=== PATIENT | male | born 1980 | race African-American/Black ===

== ENCOUNTER 2023-03-24 08:06 | Emergency (ER) | payer SELFPAY ==
[2023-03-24 08:55] LABS: #Basophils 0.1 10x3/uL (0.0-0.2); #Eosinphils 0.2 10x3/uL (0.0-0.5); #Monocytes 0.6 10x3/uL (0.0-1.1); #Neutrophils 3.9 10x3/uL (1.5-8.4); %Basophils 1.2 % (0.0-2.0); %Lymphocytes 29.8 % (18.0-47.0); %Monocytes 8.2 % (0.0-10.0); %Neutrophils 57.5 % (40.0-75.0); Hemoglobin 13.4 g/dL (13.5-17.5); Mean Corpuscular HGB CONC 33.2 g/dL (32.0-36.0); Mean Corpuscular Hemoglobin 28.8 pg (27.0-33.0); Mean Corpuscular Volume 86.7 fl (81.2-95.1); Mean Platelet Volume 10.6 fl (7.4-10.4); Platelet Count 233 10x3/uL (150-450); RBC Distribution Width 12.2 % (11.5-14.5); Red Blood Cell (RBC) Count 4.66 10x6/uL (4.32-5.72); White Blood Cell (WBC) Count 6.7 10x3/uL (3.5-10.5)
[2023-03-24 09:04] LABS: ALT (SGPT) 43 U/L (8-55); AST (SGOT) 27 U/L (5-34); Albumin 4.7 g/dL (3.5-5.0); Alkaline Phosphatase 70 U/L (40-110); Anion Gap 15 mmol/L (10-20); BUN (Urea Nitrogen) 15 mg/dL (8.9-20.6); Bilirubin, Total 0.8 mg/dL (0.2-1.2); CK (CPK) 537 U/L (30-200); Calc. Creatinine Clearance 0 mL/min (70-130); Calcium 9.3 mg/dL (7.8-10.44); Carbon Dioxide 20 mmol/L (22-29); Chloride 107 mmol/L (98-107); Estimated GFR 70; Globulin 2.8 g/dL (2.4-3.5); Glucose 148 mg/dL (70-105); Potassium 3.6 mmol/L (3.5-5.1); Protein, Total 7.5 g/dL (6.0-8.3); Sodium 138 mmol/L (136-145)
[2023-03-24 09:07] LABS: Actual Bicarbonate (HCO3v) 22.5 mEq/L (22-28); Base Excess -3.9 mEq/L (-2 - +2); Calcium, Ionized (venous) 1.15 mmol/L (1.16-1.32); Chloride (VBG) 106 mmol/L (98-106); Hematocrit-VBG 41 % (42.0-52.0); Potassium (VBG) 3.74 mmol/L (3.70-5.30); Puncture Site Other Site; Sodium 139.6 mmol/L (133-146); pH (venous) 7.305 (7.32-7.43)
[2023-03-24 10:46] LABS: Bilirubin Neg (Negative); Blood, Urine Negative (Negative); Clarity Clear (Clear); Glucose, Urine (Dipstick) Normal (Negative); Ketone, Urine Negative (Negative); Leukocyte Negative (Negative); Nitrite Negative (Negative); Protein, Urine (Dipstick) 15 mg/dl (Neg-Trace); Specific Gravity, Urine 1.025 (1.005-1.030); Urobilinogen Normal mg/dL (Less than 2)
[2023-03-24 11:17] LABS: RBC/HPF 0-3 HPF (0-3)
[2023-03-24 11:18] LABS: Bacteria/HPF 1+ HPF (None Seen); CAUTI Indications for Culture Dysuria,urgency,freq; Squamous Epithelial 0-3 HPF (0-3); Urine Culture Reflex No No; WBC/HPF 0-3 HPF (0-3)
== END 2023-03-24 11:22 | disposition home or self-care (01) ==
LOC: CSHERS 08:06
DX: E86.0 Dehydration (principal); I10 Essential (primary) hypertension; E11.9 Type 2 diabetes mellitus without complications
CPT/HCPCS: 36415; 71045; 80053; 81001; 82550; 82805; 84484; 85025; 93005; 96360; 96361

== ENCOUNTER 2023-03-26 08:41 | Emergency (ER) | payer SELFPAY ==
[2023-03-26] MEDS ORDERED: Metoclopramide HCl 10 MG TAB ONE (10:24)
== END 2023-03-26 10:40 | disposition home or self-care (01) ==
LOC: CSHERS 08:41
DX: R51.9 Headache, unspecified (principal); I10 Essential (primary) hypertension; E11.9 Type 2 diabetes mellitus without complications
CPT/HCPCS: 70450; 93005

== ENCOUNTER 2023-11-23 08:02 | Emergency (ER) | payer BC ==
[2023-11-23 08:49] LABS: #Basophils 0.1 10x3/uL (0.0-0.2); #Eosinphils 0.1 10x3/uL (0.0-0.5); #Monocytes 0.5 10x3/uL (0.0-1.1); #Neutrophils 3.6 10x3/uL (1.5-8.4); %Basophils 0.9 % (0.0-2.0); %Eosinophils 1.6 % (0.0-6.0); %Lymphocytes 23.6 % (18.0-47.0); %Monocytes 9.2 % (0.0-10.0); %Neutrophils 64.3 % (40.0-75.0); Hematocrit 40.6 % (38.8-50.0); Mean Corpuscular HGB CONC 34.5 g/dL (32.0-36.0); Mean Corpuscular Volume 84.2 fl (81.2-95.1); Mean Platelet Volume 10.3 fl (7.4-10.4); Platelet Count 230 10x3/uL (150-450); RBC Distribution Width 12.2 % (11.5-14.5); Red Blood Cell (RBC) Count 4.82 10x6/uL (4.32-5.72); White Blood Cell (WBC) Count 5.5 10x3/uL (3.5-10.5)
[2023-11-23 08:59] LABS: Anion Gap 14 mmol/L (10-20); BUN (Urea Nitrogen) 12 mg/dL (8.9-20.6); Calc. Creatinine Clearance 0 mL/min (70-130); Carbon Dioxide 18 mmol/L (22-29); Chloride 110 mmol/L (98-107); Estimated GFR 88; Glucose 151 mg/dL (70-105); Potassium 3.7 mmol/L (3.5-5.1); Sodium 138 mmol/L (136-145)
[2023-11-23 09:07] LABS: Troponin I Less than 0.010 ng/mL (< 0.028)
== END 2023-11-23 09:26 | disposition home or self-care (01) ==
LOC: CSHERS 08:02
DX: I10 Essential (primary) hypertension (principal); R42 Dizziness and giddiness; E11.9 Type 2 diabetes mellitus without complications
CPT/HCPCS: 80048; 84484; 85025; 93005

== ENCOUNTER 2025-05-16 16:07 | Emergency (ER) | payer SELFPAY ==
[2025-05-16] MEDS ORDERED: Ketorolac Tromethamine 30 MG (1 mL) VIAL ONE (17:01)
[2025-05-16 17:03] LABS: #Basophils 0.04 10x3/uL (0.0-0.2); #Eosinophils 0.05 10x3/uL (0.0-0.5); #Monocytes 0.88 10x3/uL (0.0-1.1); #Neutrophils 8.44 10x3/uL (1.5-8.4); %Basophils 0.4 % (0.0-2.0); %Eosinophils 0.5 % (0.0-6.0); %Lymphocytes 12.2 % (18.0-47.0); %Monocytes 8.2 % (0.0-10.0); %Neutrophils 78.4 % (40.0-75.0); Hematocrit 43.1 % (38.8-50.0); Hemoglobin 14.5 g/dL (13.5-17.5); Mean Corpuscular Hemoglobin 28.6 pg (27.0-33.0); Mean Corpuscular Volume 85.0 fL (81.2-95.1); Platelet Count 219 10x3/uL (150-450); Red Blood Cell (RBC) Count 5.07 10x6/uL (4.32-5.72); White Blood Cell (WBC) Count 10.75 10x3/uL (3.5-10.5)
[2025-05-16 17:26] LABS: ALT (SGPT) 32 U/L (Less than 45); AST (SGOT) 22 U/L (11-34); Albumin 4.8 g/dL (3.1-4.5); Alkaline Phosphatase 60 U/L (40-110); Anion Gap 15 mmol/L (10-20); BUN (Urea Nitrogen) 14 mg/dL (8.9-20.6); Bilirubin, Total 1.3 mg/dL (0.3-1.2); Calc. Creatinine Clearance 0 mL/min (70-130); Calcium 9.6 mg/dL (7.8-10.44); Carbon Dioxide 23 mmol/L (22-29); Chloride 105 mmol/L (98-107); Globulin 3.3 g/dL (2.4-3.5); Glucose 106 mg/dL (70-105); Lipase 16 U/L (8-78); Potassium 4.3 mmol/L (3.5-5.1); Sodium 139 mmol/L (136-145)
[2025-05-16 17:35] LABS: Troponin I 0.010 ng/mL (< 0.028)
[2025-05-16 17:57] LABS: Glucose, Urine (Dipstick) Normal (Negative); Leukocyte Negative (Negative); Protein, Urine (Dipstick) 15 mg/dl (Neg-Trace); Specific Gravity, Urine 1.015 (1.005-1.030)
[2025-05-16 18:11] LABS: Bacteria/HPF Rare-Few HPF (None Seen); CAUTI Indications for Culture Pelvic or flank pain; Urine Culture Reflex No No; WBC/HPF 0-3 HPF (0-3)
== END 2025-05-16 21:47 | disposition home or self-care (01) ==
LOC: CSHERS 16:07
DX: N20.2 Calculus of kidney with calculus of ureter (principal); I10 Essential (primary) hypertension; F17.200 Nicotine dependence, unspecified, uncomplicated; Z55.6 Problems related to health literacy
CPT/HCPCS: 36415; 71045; 71275; 74174; 80053; 81001; 83690; 84484; 85025; 93005; 96374; J1885